=== PATIENT | female | born 1935 | race Caucasian/White ===

== ENCOUNTER 2016-11-06 11:01 | Inpatient (IN) | payer MEDICARE ==
[2016-11-06] VITALS (9 sets, daily range): BP systolic 106–140; BP diastolic 53–68; PULSE 89–129; RESP 16–20; TEMP 97.8–98.3; O2SAT 94–96
[~2016-11-06] VITALS: Ht 170.2 cm; Wt 51.6 kg
[~2016-11-06 11:01] MED LIST: ALEN70 PO; ASPI81 PO; CALC625 PO; CARB300C2 PO; FOLI800T12 PO; PRIL20TA2 PO; PRIN20TA2 PO; SALM50I; SULF500 PO; VENTAER INH; ZITH250T PO
[2016-11-06] MEDS ORDERED: SODIUM CHLORIDE 0.9% FLUSH 5 ML FLUSH IVF PRN (11:15)
[2016-11-06] MEDS ORDERED: cefTRIAXone INJ 2,000 MG in SODIUM CHLORIDE 0.9% INJ 100 ML IV ONE (11:15)
[2016-11-06] MEDS ORDERED: AZITHROMYCIN INJ 500 MG in SODIUM CHLOR 0.9% 250 ML INJ 250 ML IV ONE (11:15)
--- NOTE | 2016-11-06 11:24 | PD ---
HPI . Shortness of breath Chief Complaint: Respiratory Symptoms Time Seen by Provider: 11:07 Travel History International Travel<30 days: No Contact w/Intl Traveler<30days: No Traveled to known affect area: No History of Present Illness HPI Patient presents with a 3 day history of worsening shortness of breath, weakness , poor appetite. It is associated with yellow sputum production. No fever. She states that she has been using her usual medications but has not taken anything extra such as Robitussin. PFSH Past Medical History Narrative Medical Patient reports that she is on oxygen at night. She is usually on 2 L. Autoimmune Disease: No Cancer: Yes (COLON) Cardiac Catheterization: Yes Cardiovascular Problems: Yes (STENT X 1) COPD: Yes Coronary Artery Disease: Yes Diabetes: No Diminished Hearing: No Endocrine: No Gastrointestinal Disorders: Yes Glaucoma: No Genitourinary: No Hepatitis: No Hiatal Hernia: Yes Hypertension: Yes Immune Disorder: No Musculoskeletal: Yes Neurologic: No (HAS EPILEPSEY, BUT NO SEIZURES) Psychiatric: No Reproductive: No Respiratory: Yes (COPD) Thyroid Disease: No Menopausal: Yes Tubal Ligation: Yes Past Surgical History Abdominal Surgery: Yes (HERNIA REPAIR, COLON CA REMOVED.) Appendectomy: Yes Body Medical Devices: STENT,PIN IN LEFT HIP Coronary Stent: Yes Eye Surgery: Yes (CATARACT SX BOTH EYES) Gynecologic Surgery: Yes (hysterectomy,tubal) Hysterectomy: Yes Pacemaker: No Social History Alcohol Use: Yes (2-3 DRINKS TWICE A WEEK) Tobacco Use: No Substance Use: No Allergies-Medications (Allergen,Severity, Reaction): Coded Allergies: Iodine (Verified Allergy, Severe, 11/06/16) Penicillin (Verified Allergy, Severe, shortness of breath, lip swelling, vomiting, 08/12/12) Shellfish (Unverified Allergy, Severe, with alcohol anaphylactic, 12/10) Morphine (Unverified Allergy, Intermediate, N/V, 08/12/12) Reported Meds & Prescriptions Reported Meds & Active Scripts Active Reported Senokot (Sennosides) 8.6 Mg Tab 17.2-25.8 Mg PO BID PRN Vitamin D3 (Cholecalciferol) 2,000 Unit Tab 2,000 Units PO BID Omeprazole 20 Mg Tab 20 Mg PO DAILY Aspirin Adult Low Strength (Aspirin) 81 Mg Tabdr 81 Mg PO DAILY [Nebulizer] DIRECTED Reclast Inj (Zoledronic Acid) 5 Mg/100 Ml Inj 5 Mg IV YEARLY Ventolin Hfa 18 GM Inh (Albuterol Sulfate) 90 Mcg/Act Aer 2 Puff INH Q4H PRN Serevent Diskus Inh (Salmeterol Xinafoate) 50 Mcg/Act Aero 1 Puff INH BID Sulfasalazine 500 Mg Tab 2,000 Mg PO DAILY Carbamazepine 200 Mg Tab 300 Mg PO BID Lisinopril 20 Mg Tab 20 Mg PO BID Review of Systems Except as stated in HPI: all other systems reviewed are Neg General / Constitutional: No: Fever, Chills Respiratory: Positive: Cough, Shortness of Breath, Wheezing, Other (yellow sputum) Gastrointestinal: Positive: Constipation (no bowel movement for 4 days), Loss of Appetite Musculoskeletal: Positive: Weakness Physical Exam Narrative GENERAL: This is an elderly woman who is awake and alert and able to give her own history. She does have audible wheezing and a wet sounding cough. SKIN: Warm and dry. HEAD: Atraumatic. Normocephalic. EYES: Pupils equal and round. ENT: No nasal bleeding or discharge. Mucous membranes pink and moist. NECK: Trachea midline. Supple. CARDIOVASCULAR: Regular rate and rhythm. Heart sounds are normal. RESPIRATORY: No accessory muscle use. She has good air movement throughout. She does have audible rhonchi. GASTROINTESTINAL: Abdomen soft, non-tender, nondistended. MUSCULOSKELETAL: No obvious deformities. No edema. NEUROLOGICAL: Awake and alert. No obvious cranial nerve deficits. Motor grossly within normal limits. Normal speech. PSYCHIATRIC: Appropriate mood and affect; insight and judgment normal. Data Data Last Documented VS Vital Signs Date Time Temp Pulse Resp B/P Pulse Ox O2 Delivery O2 Flow Rate FiO2 11/06/16 11:05 128 18 95 Nasal Cannula 4 11/06/16 11:05 98.1 131/55 Orders Electrocardiogram (11/06/16 ) Basic Metabolic Panel (Bmp) (11/06/16 11:15) Complete Blood Count With Diff (11/06/16 11:15) Lactic Acid Sepsis Protocol (11/06/16 11:15) Urinalysis - C+S If Indicated (11/06/16 11:15) Blood Culture (11/06/16 11:15) Sputum Culture And Gram Stain (11/06/16 11:15) Chest, Single Ap (11/06/16 11:15) Ecg Monitoring (11/06/16 11:15) Iv Access Insert/Monitor (11/06/16 11:15) Oximetry (11/06/16 11:15) Oxygen Administration (11/06/16 11:15) Sodium Chloride 0.9% Flush (Ns Flush) (11/06/16 11:15) Ceftriaxone Inj (Rocephin Inj) (11/06/16 11:15) Azithromycin Inj (Zithromax Inj) (11/06/16 11:15) B-Type Natriuretic Peptide (11/06/16 11:15) Furosemide Inj (Lasix Inj) (11/06/16 12:30) Admit To Inpatient (11/06/16 ) Code Status (11/06/16 12:35) Vital Signs (Adult) Q4H (11/06/16 12:35) Activity Oob With Assistance (11/06/16 12:35) Diet Heart Healthy (11/06/16 Lunch) Sodium Chloride 0.9% Flush (Ns Flush) (11/06/16 12:45) Sodium Chloride 0.9% Flush (Ns Flush) (11/06/16 21:00) Acetaminophen (Tylenol) (11/06/16 12:45) Ondansetron Inj (Zofran Inj) (11/06/16 12:45) Magnesium Hydroxide Liq (Milk Of Magnesi (11/06/16 12:45) Chest, Pa & Lat (11/07/16 08:00) Pt Request For Service (11/06/16 12:35) Scd Bilateral/Knee High SAE.BID (11/06/16 12:35) Naloxone Inj (Narcan Inj) (11/06/16 12:45) Inpatient Certification (11/06/16 ) 1/2 Ns + Kcl 20 Meq Inj (1/2 Ns + Kcl 20 (11/06/16 12:45) Complete Blood Count With Diff (11/07/16 06:00) Basic Metabolic Panel (Bmp) (11/07/16 06:00) Magnesium (Mg) (11/07/16 06:00) Albuterol-Ipratropium Neb (Duoneb Neb) (11/06/16 14:00) Albuterol-Ipratropium Neb (Duoneb Neb) (11/06/16 12:45) Sputum Culture And Gram Stain (11/06/16 12:37) Legionella Urinary Antigen (11/06/16 12:37) Pneumococcal Urinary Antigen (11/06/16 12:37) Azithromycin (Zithromax) (11/07/16 09:00) Enalaprilat Inj (Vasotec Inj) (11/06/16 12:45) Clonidine (Catapres) (11/06/16 12:45) Aspirin Ec (Ecotrin Ec) (11/07/16 09:00) Carbamazepine (Tegretol) (11/06/16 12:45) Lisinopril (Prinivil) (11/06/16 21:00) Pantoprazole (Protonix) (11/07/16 09:00) Salmeterol Diskus Inh (Serevent Diskus I (11/06/16 21:00) Sennosides (Senokot) (11/06/16 12:45) Ceftriaxone Inj (Rocephin Inj) (11/07/16 12:00) Labs Laboratory Tests Test 11/06/16 11/06/16 11:25 11:35 White Blood Count 18.0 TH/MM3 Red Blood Count 3.52 MIL/MM3 Hemoglobin 11.5 GM/DL Hematocrit 34.6 % Mean Corpuscular Volume 98.3 FL Mean Corpuscular Hemoglobin 32.6 PG Mean Corpuscular Hemoglobin 33.2 % Concent Red Cell Distribution Width 13.4 % Platelet Count 172 TH/MM3 Mean Platelet Volume 8.2 FL Neutrophils (%) (Auto) 84.9 % Lymphocytes (%) (Auto) 8.1 % Monocytes (%) (Auto) 6.5 % Eosinophils (%) (Auto) 0.2 % Basophils (%) (Auto) 0.3 % Neutrophils # (Auto) 15.3 TH/MM3 Lymphocytes # (Auto) 1.5 TH/MM3 Monocytes # (Auto) 1.2 TH/MM3 Eosinophils # (Auto) 0.0 TH/MM3 Basophils # (Auto) 0.1 TH/MM3 CBC Comment DIFF FINAL Differential Comment Sodium Level 138 MEQ/L Potassium Level 3.8 MEQ/L Chloride Level 100 MEQ/L Carbon Dioxide Level 27.6 MEQ/L Anion Gap 10 MEQ/L Blood Urea Nitrogen 15 MG/DL Creatinine 0.59 MG/DL Estimat Glomerular Filtration 97 ML/MIN Rate Random Glucose 58 MG/DL Calcium Level 9.0 MG/DL Lactic Acid Level 2.2 mmol/L MDM Medical Decision Making Medical Screen Exam Complete: Yes Emergency Medical Condition: Yes Medical Record Reviewed: Yes Interpretation(s) EKG shows some right ventricular hypertrophy which is unchanged from previous. In a sinus rhythm. There is no ST segment elevation or depression. Differential Diagnosis Differential diagnosis includes but is not limited to viral respiratory illness , bronchitis, pneumonia, allergies, CHF, asthma/COPD. Narrative Course Patient presents with a three-day history of cough and shortness of breath. She has a history of COPD. She has had some sputum production but no fever. EMS reports initial sats of 92% on 4 L of oxygen. Her respiratory status improved in route with nebulizer treatments. They had given her 3 nebs and Solu -Medrol. CXR--> "1. Cardiomegaly with mild interstitial edema. 2. Elevation of right hemidiaphragm with consolidative changes right base. " I will order antibiotics for community acquired pneumonia as well as Lasix. CBC has a white blood count of 18.0. Dr. Holder called me to say that he had already put in admission orders for this patient. Sepsis Criteria SIRS Criteria (2 or more): Heart rate over 90, WBC > 41014, < 4000 or > 10% bands Sepsis Criteria (SIRS+source): Infect source susp/known Criteria Outcome: Meets SIRS criteria Diagnosis Primary Impression: Pneumonia Qualified Code: J18.1 - Pneumonia of right lower lobe due to infectious organism Additional Impression: CHF (congestive heart failure) Qualified Code: I50.9 - Acute congestive heart failure, unspecified congestive heart failure type Admitting Information Admitting Physician Requests: Admit Condition: Stable Mely Leblanc MD Nov 06, 2016 11:24
[2016-11-06] MEDS ORDERED: ASPI1TAB91 PO (11:40)
[2016-11-06] MEDS ORDERED: VENTAER INH (11:40)
[2016-11-06] MEDS ORDERED: VITA200012 PO (11:40)
[2016-11-06] MEDS ORDERED: SULF500T3 PO (11:40)
[2016-11-06] MEDS ORDERED: ZOLE5P IV (11:40)
[2016-11-06] MEDS ORDERED: NEBUMIS6 (11:40)
[2016-11-06] MEDS ORDERED: OMEP20TA PO (11:40)
[2016-11-06] MEDS ORDERED: SENO8.6T5 PO (11:40)
[2016-11-06] MEDS ORDERED: SALM50I INH (11:40)
[2016-11-06] MEDS ORDERED: LISI-515 PO (11:40)
[2016-11-06] MEDS ORDERED: CARB200T PO (11:40)
[2016-11-06 11:56] LABS: AUTOMATED NEUTROPHIL # 15.3 TH/MM3 (1.8-7.7); BASOPHIL # 0.1 TH/MM3 (0-0.2); BASOPHIL % 0.3 % (0.0-2.0); EOSINOPHIL % 0.2 % (0.0-4.0); HEMATOCRIT 34.6 % (35.0-46.0); HEMO FLAGS DIFF FINAL; LYMPH % 8.1 % (9.0-44.0); LYMPHOCYTE # 1.5 TH/MM3 (1.0-4.8); MEAN CELL VOLUME 98.3 FL (80.0-100.0); MEAN CORPUSCULAR HEMOGLOBIN 32.6 PG (27.0-34.0); MEAN CORPUSCULAR HGB CONC 33.2 % (32.0-36.0); MONO % 6.5 % (0.0-8.0); NEUT % 84.9 % (16.0-70.0); PLATELET COUNT 172 TH/MM3 (150-450); RED BLOOD COUNT 3.52 MIL/MM3 (4.00-5.30); RED CELL DISTRIBUTION WIDTH 13.4 % (11.6-17.2)
--- NOTE | 2016-11-06 12:10 | RADRPT ---
EXAM DATE/TIME: 11/06/2016 11:34 [facility] COMPARISON: CHEST PA & LAT, August 12, 2012, 15:12. INDICATIONS : Cough, Short of Breath. MEDICAL HISTORY : Chronic obstructive pulmonary disease. SURGICAL HISTORY : None. ENCOUNTER: Initial ACUITY: 1 day PAIN SCORE: 0/10 LOCATION: Bilateral chest FINDINGS: The heart is enlarged. Mild interstitial edema is present. There is elevation of the right hemidiap hragm with minimal consolidative changes present in the right base. These have progressed in the int erval. Old rib fractures are seen on the left. CONCLUSION: 1. Cardiomegaly with mild interstitial edema. 2. Elevation of right hemidiaphragm with consolidative changes right base. Zacarias Orozco MD FACR on November 06, 2016 at 11:55 Board Certified Radiologist. This report was verified electronically.
[2016-11-06 12:24] LABS: BICARBONATE 27.6 MEQ/L (21.0-32.0); POTASSIUM 3.8 MEQ/L (3.5-5.1)
[2016-11-06] MEDS ORDERED: FUROSEMIDE 40 MG/4 ML VIAL IV PUSH ONE (12:30)
[2016-11-06] MEDS ORDERED: SENNOSIDES 8.6 MG TAB PO PRN (12:45)
[2016-11-06] MEDS ORDERED: ACETAMINOPHEN 325 MG TAB PO PRN (12:45)
[2016-11-06] MEDS ORDERED: ONDANSETRON HCL 4 MG/2 ML VIAL IVP PRN (12:45)
[2016-11-06] MEDS ORDERED: ENALAPRILAT 1.25 MG/ML VIAL IV PUSH PRN (12:45)
[2016-11-06] MEDS ORDERED: NALOXONE HCL 0.4 MG/ML AMP IV PRN (12:45)
[2016-11-06] MEDS ORDERED: SODIUM CHLORIDE 0.9% FLUSH 5 ML FLUSH FLUSH PRN (12:45)
[2016-11-06] MEDS: 1/2 NS + KCL 20 MEQ INJ 1,000 ML IV SCH (13:26)
[2016-11-06] MEDS ORDERED: PILL SPLITTER OTHER PRN (13:30)
[2016-11-06] MEDS: RESP: ALBUTEROL 2.5 MG/IPRATROPIUM 0.5 MG NEB (SCH) NEB ×2 (13:35→20:16)
[2016-11-06 13:48] LABS: LACTIC ACID GHOST NOT REPORTABLE
[2016-11-06] MEDS: carBAMazepine 200 MG TAB PO SCH ×2 (13:59→20:37)
[2016-11-06 15:30] LABS: BLOOD, URINE NEG (NEG); GLUCOSE,URINE NEG (NEG); HYALINE CAST, URINE 1 /lpf (RARE); KETONE, URINE 40 mg/dL (NEG); MUCUS URINE FEW /lpf (OCC); NITRITE,URINE NEG (NEG); PH, URINE 5.5 (5.0-8.5); URINE COLOR DARK-YELLOW (YELLW/STRAW)
[2016-11-06 15:31] LABS: COMMENT (UR) CULT NOT INDICATED; CULTURE IF INDICATED CULT NOT INDICATED
--- NOTE | 2016-11-06 17:39 | EKG ---
Date Performed: 11/06/2016 Time Performed: 11:14:09 PTAGE: 81 years EKG: SINUS TACHYCARDIA RIGHT AXIS DEVIATION ST/T-WAVE ABNORMALITY, CONSIDER LATERAL ISCHEMIA ABN ORMAL ECG PREVIOUS TRACING : 10/30/2010 06.18 Compared to previous tracing, axis has shifted rightward, l ateral ST/T changes are now present. DOCTOR: Guilherme Rodríguez Interpretating Date/Time 11/06/2016 17:38:03
--- NOTE | 2016-11-06 18:04 | HHI.HP ---
HPI Service [facility] Hospitalists Primary Care Physician Felix Medel MD Admission Diagnosis PNEUMONIA Chief Complaint: cough SOB Travel History International Travel<30 Days: No Contact w/Intl Traveler <30 Da: No Traveled to Known Affected Are: No History of Present Illness Patient is a pleasant 81-year-old female presented to the [facility] ER today with complaint of worsening cough and shortness of breath. Cough was productive of yellow sputum. Patient denies fever or chills. Patient denies recent travel. Patient complains of generalized weakness and poor appetite. Pt is chronically SOB d/t COPD, but she feels that her SOB has worsened from baseline in the last 1-2 weeks. Pt relates that she was around her great-granddaughter on [place] who had URI symptoms. Review of Systems Constitutional: DENIES: Diaphoretic episodes, Fatigue, Fever, Weight gain, Weight loss, Chills, Dizziness, Change in appetite, Night Sweats Endocrine: DENIES: Heat/cold intolerance, Polydipsia, Polyuria, Polyphagia Eyes: DENIES: Blurred vision, Diplopia, Eye inflammation, Eye pain, Vision loss , Photosensitivity, Double Vision Ears, nose, mouth, throat: DENIES: Tinnitus, Hearing loss, Vertigo, Nasal discharge, Oral lesions, Throat pain, Hoarseness, Ear Pain, Running Nose, Epistaxis, Sinus Pain, Toothache, Odynophagia Respiratory: COMPLAINS OF: Cough, Sputum production, Shortness of breath, DENIES: Apneas, Snoring, Wheezing, Hemoptysis Cardiovascular: DENIES: Chest pain, Palpitations, Syncope, Dyspnea on Exertion , PND, Lower Extremity Edema, Orthopnea, Claudication Gastrointestinal: DENIES: Abdominal pain, Black stools, Bloody stools, BRB per rectum, Constipation, Diarrhea, GERD, Nausea, Reflux, Vomiting, Difficulty Swallowing, Anorexia Genitourinary: DENIES: Urinary frequency, Urinary incontinence, Urgency, Hematuria, Dysuria, Nocturia Musculoskeletal: DENIES: Joint pain, Muscle aches, Stiffness, Joint Swelling, Back pain, Neck pain Integumentary: DENIES: Abnormal pigmentation, Pruritus, Rash, Nail changes, Breast masses, Breast skin changes, Nipple discharge Hematologic/lymphatic: DENIES: Bruising, Lymphadenopathy Immunologic/allergic: DENIES: Eczema, Urticaria Neurologic: DENIES: Abnormal gait, Headache, Localized weakness, Paresthesias, Seizures, Speech Problems, Tremor, Poor Balance Psychiatric: DENIES: Anxiety, Confusion, Mood changes, Depression, Hallucinations, Agitation, Suicidal Ideation, Homicidal Ideation, Delusions, History of Bipolar, History of Schizophrenia Past Family Social History Past Medical History 1) COPD 2) peripheral artery disease 3) seizure disorder, chronic 4) hypertension 5) insomnia 6) chronic low back pain 7) peripheral vascular disease 8) coronary artery disease 9) Ulcerative colitis Past Surgical History 1) appendectomy 2) bilateral breast augmentation 3) cataract surgery 4) EGD/colonoscopy 5) excision tumor from back 6) herniorrhaphy 7) hip surgery 8) hysterectomy 9) partial colectomy with colostomy 10) heart catheterization with coronary stent placement 11) tubal ligation 12) varicose vein ligation Reported Medications Reported Meds & Active Scripts Active Reported Senokot (Sennosides) 8.6 Mg Tab 17.2-25.8 Mg PO BID PRN Vitamin D3 (Cholecalciferol) 2,000 Unit Tab 2,000 Units PO BID Omeprazole 20 Mg Tab 20 Mg PO DAILY Aspirin Adult Low Strength (Aspirin) 81 Mg Tabdr 81 Mg PO DAILY [Nebulizer] DIRECTED Reclast Inj (Zoledronic Acid) 5 Mg/100 Ml Inj 5 Mg IV YEARLY Ventolin Hfa 18 GM Inh (Albuterol Sulfate) 90 Mcg/Act Aer 2 Puff INH Q4H PRN Serevent Diskus Inh (Salmeterol Xinafoate) 50 Mcg/Act Aero 1 Puff INH BID Sulfasalazine 500 Mg Tab 2,000 Mg PO DAILY Carbamazepine 200 Mg Tab 300 Mg PO BID Lisinopril 20 Mg Tab 20 Mg PO BID Allergies: Coded Allergies: Iodine (Verified Allergy, Severe, 11/06/16) Penicillin (Verified Allergy, Severe, shortness of breath, lip swelling, vomiting, 08/12/12) Shellfish (Unverified Allergy, Severe, with alcohol anaphylactic, 12/10) Morphine (Unverified Allergy, Intermediate, N/V, 08/12/12) Family History Noncontributory Social History - Former smoker - No alcohol use - No illicit street drugs - Retired - Physical Exam Vital Signs Vital Signs Date Time Temp Pulse Resp B/P Pulse Ox O2 Delivery O2 Flow Rate FiO2 11/06/16 15:59 Nasal Cannula 4.00 11/06/16 15:00 98 16 120/59 94 Nasal Cannula 4 11/06/16 14:50 97.8 102 20 140/63 94 11/06/16 13:36 94 Nasal Cannula 4.00 11/06/16 13:00 105 16 111/53 94 Nasal Cannula 4 11/06/16 11:05 128 18 95 Nasal Cannula 4 11/06/16 11:05 98.1 129 18 131/55 95 Nasal Cannula 4 11/06/16 11:01 98.1 128 18 131/55 96 11/06/16 11:01 95 Nasal Cannula 4 Physical Exam GENERAL: This is a well-nourished, well-developed patient, in no apparent distress. SKIN: No rashes, ecchymoses or lesions. Cool and dry. HEAD: Atraumatic. Normocephalic. No temporal or scalp tenderness. EYES: Pupils equal round and reactive. Extraocular motions intact. No scleral icterus. No injection or drainage. ENT: Nose without bleeding, purulent drainage or septal hematoma. Throat without erythema, tonsillar hypertrophy or exudate. Uvula midline. Airway patent. NECK: Trachea midline. No JVD or lymphadenopathy. Supple, nontender, no meningeal signs. CARDIOVASCULAR: Regular rate and rhythm without murmurs, gallops, or rubs. RESPIRATORY: rhonchi right lung field worse than left . GASTROINTESTINAL: Abdomen soft, non-tender, nondistended. No hepato-splenomegaly , or palpable masses. No guarding. MUSCULOSKELETAL: Extremities without clubbing, cyanosis, or edema. No joint tenderness, effusion, or edema noted. No calf tenderness. Negative Homans sign bilaterally. NEUROLOGICAL: Awake and alert. Cranial nerves II through XII intact. Motor and sensory grossly within normal limits. Five out of 5 muscle strength in all muscle groups. Normal speech. Laboratory Laboratory Tests Test 11/06/16 11/06/16 11/06/16 11/06/16 11:25 11:35 12:05 15:00 White Blood Count 18.0 Red Blood Count 3.52 Hemoglobin 11.5 Hematocrit 34.6 Mean Corpuscular Volume 98.3 Mean Corpuscular Hemoglobin 32.6 Mean Corpuscular Hemoglobin 33.2 Concent Red Cell Distribution Width 13.4 Platelet Count 172 Mean Platelet Volume 8.2 Neutrophils (%) (Auto) 84.9 Lymphocytes (%) (Auto) 8.1 Monocytes (%) (Auto) 6.5 Eosinophils (%) (Auto) 0.2 Basophils (%) (Auto) 0.3 Neutrophils # (Auto) 15.3 Lymphocytes # (Auto) 1.5 Monocytes # (Auto) 1.2 Eosinophils # (Auto) 0.0 Basophils # (Auto) 0.1 CBC Comment DIFF FINAL Differential Comment Sodium Level 138 Potassium Level 3.8 Chloride Level 100 Carbon Dioxide Level 27.6 Anion Gap 10 Blood Urea Nitrogen 15 Creatinine 0.59 Estimat Glomerular Filtration 97 Rate Random Glucose 58 Calcium Level 9.0 Lactic Acid Level 2.2 B-Type Natriuretic Peptide 122 Urine Color DARK-YELLOW Urine Turbidity CLEAR Urine pH 5.5 Urine Specific [place] 1.014 Urine Protein TRACE Urine Glucose (UA) NEG Urine Ketones 40 Urine Occult Blood NEG Urine Nitrite NEG Urine Bilirubin NEG Urine Urobilinogen LESS THAN 2.0 Urine Leukocyte Esterase NEG Urine RBC LESS THAN 1 Urine WBC LESS THAN 1 Urine Hyaline Casts 1 Urine Mucus FEW Microscopic Urinalysis Comment CULT NOT INDICATED Date/Time Procedure Status Source Growth 11/06/16 15:00 Legionella Antigen Received Urine Random Urine Pending 11/06/16 15:00 Streptococcus pneumoniae Antigen (M Received Urine Random Urine Pending 11/06/16 11:35 Gram Stain - Final Resulted Sputum Expectorated Sputum 11/06/16 11:35 Sputum Culture Resulted Sputum Expectorated Sputum Pending 11/06/16 11:35 Aerobic Blood Culture Received Blood Peripheral Pending 11/06/16 11:35 Anaerobic Blood Culture Received Blood Peripheral Pending Result Diagram: 11/06/16 1125 11/06/16 1125 Imaging Last Impressions Chest X-Ray 11/06/16 1115 Signed Impressions: Service Date/Time: Sunday, November 06, 2016 11:34 - CONCLUSION: 1. Cardiomegaly with mild interstitial edema. 2. Elevation of right hemidiaphragm with consolidative changes right base. Zacarias Orozco MD FACR Septic Shock Reassessment Heart: Regular rate and rhythm Lungs: Clear Skin: Warm Peripheral Pulses: Bounding Right Radial Bounding Left Radial Bounding Right Popliteal Bounding Left Popliteal Bounding Right Dorsalis Pedis Bounding Left Dorsalis Pedis Bounding Right Posterior Tibial Bounding Left Posterior Tibial Capillary Refill: Brisk Assessment and Plan Problem List: (1) Pneumonia Status: Acute Plan: - Patient has underlying COPD - Obtain sputum studies - Obtain urine antigen for Legionella and pneumococcus - Obtain repeat chest x-ray in a.m. - Intravenous fluids - Supplemental oxygen as necessary - Continue IV Rocephin - Continue azithromycin - IV solumedrol - Duo neb treatments (2) COPD (chronic obstructive pulmonary disease) Status: Acute Plan: - Duo neb treatments- continue - Duo neb treatments - Continue scheduled Serevent (3) Ulcerative colitis Status: Chronic Plan: - Patient follows with [facility] - Continue sulfasalazine (4) HTN (hypertension) Status: Chronic Plan: - Stable - Continue lisinopril (5) CAD (coronary artery disease) Status: Acute Plan: - Patient follows with Dr. Сергей Wang - History of heart catheter and coronary stent - Continue aspirin, lisinopril (6) Seizure disorder Status: Acute Plan: - chronic - Continue carbamazepine Problem Qualifiers (1) Pneumonia: Qualified Code: J18.1 - Pneumonia of right lower lobe due to infectious organism (2) COPD (chronic obstructive pulmonary disease): Qualified Code: J44.9 - Chronic obstructive pulmonary disease, unspecified COPD type (3) Ulcerative colitis: Qualified Code: K51.919 - Ulcerative colitis with complication, unspecified location (4) HTN (hypertension): Qualified Code: I10 - Essential hypertension (5) CAD (coronary artery disease): Qualified Code: I25.10 - Coronary artery disease involving [place] heart without angina pectoris, unspecified vessel or lesion type Jared Holder DO Nov 06, 2016 18:04
[2016-11-06] MEDS ORDERED: BISACODYL 10 MG SUPP PR PRN (18:30)
[2016-11-06] MEDS ORDERED: SOD PHOSPHATE/SOD BIPHOSPHATE (ADULT) ENEMA 133ML PR PRN (18:30)
[2016-11-06] MEDS: SODIUM CHLORIDE 0.9% FLUSH 5 ML FLUSH FLUSH SCH (20:26)
[2016-11-06] MEDS: DOCUSATE SODIUM 100 MG CAP PO SCH (20:37)
[2016-11-06] MEDS: methylPREDNISolone SOD SUCC 40 MG/1 ML VIAL IV PUSH SCH (20:38)
[2016-11-06] MEDS: LISINOPRIL 20 MG TAB PO SCH (20:38)
[2016-11-06] MEDS: SALMETEROL XINAFOATE 50 MCG DISKUS INH SCH (20:38)
[2016-11-06] MEDS: TEMAZEPAM 7.5 MG CAP PO PRN (23:25)
[2016-11-07] VITALS (9 sets, daily range): BP systolic 107–144; BP diastolic 56–96; PULSE 85–96; RESP 16–22; TEMP 97.6–98.7; O2SAT 91–98
[2016-11-07] MEDS: 1/2 NS + KCL 20 MEQ INJ 1,000 ML IV SCH (02:34)
--- NOTE | 2016-11-07 04:49 | RADRPT ---
EXAM DATE/TIME: 11/07/2016 04:37 [facility] COMPARISON: No previous studies available for comparison. INDICATIONS : Trauma; fall. RADIATION DOSE: 38.28 CTDIvol (mGy) MEDICAL HISTORY : Hypertension. Chronic obstructive pulmonary disease. SURGICAL HISTORY : None. ENCOUNTER: Initial ACUITY: 1 day PAIN SCALE: 2/10 LOCATION: cranial TECHNIQUE: Multiple contiguous axial images were obtained of the head. Using automated exposure control and adj ustment of the mA and/or kV according to patient size, radiation dose was kept as low as reasonably a chievable to obtain optimal diagnostic quality images. FINDINGS: CEREBRUM: The ventricles are normal for age. No evidence of midline shift, mass lesion, hemorrhage or acute in farction. No extra-axial fluid collections are seen. POSTERIOR FOSSA: The cerebellum and brainstem are intact. The 4th ventricle is midline. The cerebellopontine angle i s unremarkable. EXTRACRANIAL: The visualized portion of the orbits is intact. SKULL: The calvaria is intact. No evidence of skull fracture. CONCLUSION: No acute intracranial disease. Wilson Rubio MD on November 07, 2016 at 4:48 Board Certified Radiologist. This report was verified electronically.
[2016-11-07 06:05] LABS: AUTOMATED NEUTROPHIL # 13.5 TH/MM3 (1.8-7.7); BASOPHIL % 0.1 % (0.0-2.0); HEMO FLAGS DIFF FINAL; LYMPH % 2.8 % (9.0-44.0); LYMPHOCYTE # 0.4 TH/MM3 (1.0-4.8); MEAN CELL VOLUME 97.7 FL (80.0-100.0); MEAN CORPUSCULAR HEMOGLOBIN 31.6 PG (27.0-34.0); MEAN CORPUSCULAR HGB CONC 32.3 % (32.0-36.0); NEUT % 93.1 % (16.0-70.0); PLATELET COUNT 171 TH/MM3 (150-450); RED BLOOD COUNT 3.28 MIL/MM3 (4.00-5.30); RED CELL DISTRIBUTION WIDTH 13.5 % (11.6-17.2); WHITE BLOOD COUNT 14.5 TH/MM3 (4.0-11.0)
[2016-11-07 06:39] LABS: BICARBONATE 27.4 MEQ/L (21.0-32.0); MAGNESIUM 2.4 MG/DL (1.5-2.5); POTASSIUM 4.2 MEQ/L (3.5-5.1)
[2016-11-07] MEDS: carBAMazepine 200 MG TAB PO SCH ×2 (08:17→22:32)
[2016-11-07] MEDS: methylPREDNISolone SOD SUCC 40 MG/1 ML VIAL IV PUSH SCH ×2 (08:17→22:33)
[2016-11-07] MEDS: PANTOPRAZOLE SOD 20 MG DELAYED RELEASE TAB PO SCH (08:17)
[2016-11-07] MEDS: SODIUM CHLORIDE 0.9% FLUSH 5 ML FLUSH FLUSH SCH ×2 (08:18→22:32)
[2016-11-07] MEDS: AZITHROMYCIN 250 MG TAB PO SCH (08:18)
[2016-11-07] MEDS: DOCUSATE SODIUM 100 MG CAP PO SCH ×2 (08:18→22:32)
[2016-11-07] MEDS: ASPIRIN EC 81 MG TABEC PO SCH (08:18)
[2016-11-07] MEDS: LISINOPRIL 20 MG TAB PO SCH ×2 (08:18→22:32)
[2016-11-07] MEDS: RESP: ALBUTEROL 2.5 MG/IPRATROPIUM 0.5 MG NEB (SCH) NEB ×3 (08:44→20:52)
--- NOTE | 2016-11-07 10:13 | RADRPT ---
EXAM DATE/TIME: 11/07/2016 08:32 [facility] COMPARISON: CHEST PA & LAT, August 12, 2012, 15:12. INDICATIONS: Cough, Short of breath MEDICAL HISTORY: Chronic obstructive pulmonary disease. SURGICAL HISTORY: None. ENCOUNTER: Subsequent ACUITY: 2 days PAIN SCORE: 0/10 LOCATION: Bilateral chest FINDINGS: There is mild elevation of the right hemidiaphragm. Left lung is clear. Heart is enlarged. There i s very mild interstitial edema present. CONCLUSION: Marked elevation of the right hemidiaphragm, minimal parenchymal changes right base. Mild interstitial edema. Zacarias Orozco MD FACR on November 07, 2016 at 9:22 Board Certified Radiologist. This report was verified electronically.
[2016-11-07] MEDS: SALMETEROL XINAFOATE 50 MCG DISKUS INH SCH ×2 (12:58→22:31)
[2016-11-07] MEDS: cefTRIAXone INJ 1,000 MG in SODIUM CHLORIDE 0.9% INJ 100 ML IV SCH (12:58)
--- NOTE | 2016-11-07 21:14 | HHI.PR ---
Subjective Remarks still sob/cough Objective Vitals heent neg heart reg lung rhonci abd s/nt ext no edema Vital Signs Date Time Temp Pulse Resp B/P Pulse Ox O2 Delivery O2 Flow Rate FiO2 11/07/16 20:54 98 Nasal Cannula 4.00 11/07/16 16:00 98.2 85 22 114/56 96 11/07/16 12:00 98.7 89 22 119/58 95 11/07/16 08:23 96 Nasal Cannula 4.00 11/07/16 08:20 Nasal Cannula 4.00 11/07/16 08:00 97.9 87 22 140/96 96 11/07/16 04:00 97.6 85 18 140/63 97 11/07/16 04:00 98.1 88 16 115/61 96 11/07/16 03:30 97.8 89 20 144/66 95 11/07/16 00:15 97.9 87 18 126/69 94 11/06/16 11/06/16 11/07/16 15:00 23:00 07:00 Intake Total 996 ml 120 ml Balance 996 ml 120 ml Intake Oral 240 ml 120 ml IV Total 756 ml # Voids 2 2 Result Diagram: 11/07/16 0535 11/07/16 0535 Imaging Last Impressions Chest X-Ray 11/06/16 1115 Signed Impressions: Service Date/Time: Sunday, November 06, 2016 11:34 - CONCLUSION: 1. Cardiomegaly with mild interstitial edema. 2. Elevation of right hemidiaphragm with consolidative changes right base. Zacarias Orozco MD FACR A/P Problem List: (1) Pneumonia Status: Acute Plan: - presents with copd exacerbation and pna f/u sputum cx cont abx, nebs, solumedrol mucolytics dvt prophylaxis PT oxygen (2) COPD (chronic obstructive pulmonary disease) Status: Acute Plan: see above (3) Ulcerative colitis Status: Chronic Plan: - Patient follows with [facility] - Continue sulfasalazine (4) HTN (hypertension) Status: Chronic Plan: - Stable - Continue lisinopril (5) CAD (coronary artery disease) Status: Chronic Plan: - Patient follows with Dr. Сергей Wang - History of heart catheter and coronary stent - Continue aspirin, lisinopril (6) Seizure disorder Status: Chronic Plan: - chronic - Continue carbamazepine Problem Qualifiers (1) Pneumonia: Qualified Code: J18.1 - Pneumonia of right lower lobe due to infectious organism (2) COPD (chronic obstructive pulmonary disease): Qualified Code: J44.9 - Chronic obstructive pulmonary disease, unspecified COPD type (3) Ulcerative colitis: Qualified Code: K51.919 - Ulcerative colitis with complication, unspecified location (4) HTN (hypertension): Qualified Code: I10 - Essential hypertension (5) CAD (coronary artery disease): Qualified Code: I25.10 - Coronary artery disease involving [place] heart without angina pectoris, unspecified vessel or lesion type Salvador Hokpins MD Nov 07, 2016 21:14
[2016-11-07] MEDS: TEMAZEPAM 7.5 MG CAP PO PRN (22:34)
[2016-11-07] MEDS: guaiFENesin E.R. 600 MG TAB PO SCH (22:36)
[2016-11-08] VITALS (8 sets, daily range): BP systolic 112–157; BP diastolic 56–70; PULSE 85–105; RESP 18–24; TEMP 97.6–98.4; O2SAT 93–98
[2016-11-08] MEDS: methylPREDNISolone SOD SUCC 40 MG/1 ML VIAL IV PUSH SCH ×4 (05:49→22:32)
[2016-11-08] MEDS: RESP: ALBUTEROL 2.5 MG/IPRATROPIUM 0.5 MG NEB (SCH) NEB ×3 (07:58→19:41)
[2016-11-08] MEDS: guaiFENesin E.R. 600 MG TAB PO SCH ×2 (09:19→22:32)
[2016-11-08] MEDS: DOCUSATE SODIUM 100 MG CAP PO SCH ×2 (09:20→21:00)
[2016-11-08] MEDS: ASPIRIN EC 81 MG TABEC PO SCH (09:20)
[2016-11-08] MEDS: AZITHROMYCIN 250 MG TAB PO SCH (09:21)
[2016-11-08] MEDS: PANTOPRAZOLE SOD 20 MG DELAYED RELEASE TAB PO SCH (09:21)
[2016-11-08] MEDS: carBAMazepine 200 MG TAB PO SCH (09:21)
[2016-11-08] MEDS: LISINOPRIL 20 MG TAB PO SCH ×2 (09:21→22:32)
[2016-11-08] MEDS: SODIUM CHLORIDE 0.9% FLUSH 5 ML FLUSH FLUSH SCH ×2 (09:22→22:32)
[2016-11-08] MEDS: SALMETEROL XINAFOATE 50 MCG DISKUS INH SCH ×2 (09:22→22:32)
--- NOTE | 2016-11-08 10:30 | HHI.PR ---
Subjective Remarks a little better. in chair Objective Vitals heart reg lung rhonci abd s/nt ext no edema Vital Signs Date Time Temp Pulse Resp B/P Pulse Ox O2 Delivery O2 Flow Rate FiO2 11/08/16 08:01 93 Nasal Cannula 3.00 11/08/16 08:00 98.0 105 24 112/56 93 11/08/16 04:00 98.2 94 18 157/70 97 11/08/16 04:00 97 Nasal Cannula 4.00 11/08/16 00:00 95 Nasal Cannula 4.00 11/08/16 00:00 98.4 86 18 127/66 95 11/07/16 20:54 98 Nasal Cannula 4.00 11/07/16 20:00 98.3 96 20 107/59 93 11/07/16 19:15 98 Nasal Cannula 3.00 11/07/16 16:00 98.2 85 22 114/56 96 11/07/16 12:00 98.7 89 22 119/58 95 11/07/16 11/07/16 11/08/16 15:00 23:00 07:00 Intake Total 120 ml Balance 120 ml Intake Oral 120 ml # Voids 3 # Bowel Movements 0 Result Diagram: 11/07/16 0535 11/07/16 0535 Imaging Last Impressions Chest X-Ray 11/06/16 1115 Signed Impressions: Service Date/Time: Sunday, November 06, 2016 11:34 - CONCLUSION: 1. Cardiomegaly with mild interstitial edema. 2. Elevation of right hemidiaphragm with consolidative changes right base. Zacarias Orozco MD FACR A/P Problem List: (1) Pneumonia Status: Acute Plan: - presents with copd exacerbation and pna f/u sputum cx cont abx, nebs, solumedrol mucolytics dvt prophylaxis PT oxygen will plan for home with [facility] (2) COPD (chronic obstructive pulmonary disease) Status: Acute Plan: see above (3) Ulcerative colitis Status: Chronic Plan: - Patient follows with [facility] - Continue sulfasalazine (4) HTN (hypertension) Status: Chronic Plan: - Stable - Continue lisinopril (5) CAD (coronary artery disease) Status: Chronic Plan: - Patient follows with Dr. Сергей Wang - History of heart catheter and coronary stent - Continue aspirin, lisinopril (6) Seizure disorder Status: Chronic Plan: - hold tegretol...level high...recheck. Problem Qualifiers (1) Pneumonia: Qualified Code: J18.1 - Pneumonia of right lower lobe due to infectious organism (2) COPD (chronic obstructive pulmonary disease): Qualified Code: J44.9 - Chronic obstructive pulmonary disease, unspecified COPD type (3) Ulcerative colitis: Qualified Code: K51.919 - Ulcerative colitis with complication, unspecified location (4) HTN (hypertension): Qualified Code: I10 - Essential hypertension (5) CAD (coronary artery disease): Qualified Code: I25.10 - Coronary artery disease involving [place] heart without angina pectoris, unspecified vessel or lesion type Salvador Hopkins MD Nov 08, 2016 10:30
[2016-11-08] MEDS: cefTRIAXone INJ 1,000 MG in SODIUM CHLORIDE 0.9% INJ 100 ML IV SCH (13:15)
[2016-11-08] MEDS: MAGNESIUM HYDROXIDE SUSP 30 ML CUP PO PRN (15:39)
[2016-11-08] MEDS ORDERED: LACTULOSE SYRUP 20 GM/30 ML CUP PO ONE (18:00)
[2016-11-08] MEDS: TEMAZEPAM 7.5 MG CAP PO PRN (22:32)
[2016-11-09] VITALS (9 sets, daily range): BP systolic 152–191; BP diastolic 68–83; PULSE 85–104; RESP 18–24; TEMP 97.3–98.7; O2SAT 92–98
[2016-11-09] MEDS: methylPREDNISolone SOD SUCC 40 MG/1 ML VIAL IV PUSH SCH ×4 (05:32→23:46)
[2016-11-09] MEDS: DOCUSATE SODIUM 100 MG CAP PO SCH ×2 (09:00→21:49)
[2016-11-09] MEDS: SODIUM CHLORIDE 0.9% FLUSH 5 ML FLUSH FLUSH SCH ×2 (09:00→21:00)
[2016-11-09] MEDS: RESP: ALBUTEROL 2.5 MG/IPRATROPIUM 0.5 MG NEB (SCH) NEB ×3 (09:14→21:02)
[2016-11-09] MEDS: AZITHROMYCIN 250 MG TAB PO SCH (09:26)
[2016-11-09] MEDS: PANTOPRAZOLE SOD 20 MG DELAYED RELEASE TAB PO SCH (09:26)
[2016-11-09] MEDS: ASPIRIN EC 81 MG TABEC PO SCH (09:26)
[2016-11-09] MEDS: guaiFENesin E.R. 600 MG TAB PO SCH ×2 (09:26→21:49)
[2016-11-09] MEDS: LISINOPRIL 20 MG TAB PO SCH ×2 (09:26→21:49)
[2016-11-09] MEDS: SALMETEROL XINAFOATE 50 MCG DISKUS INH SCH ×2 (09:27→21:50)
--- NOTE | 2016-11-09 11:06 | HHI.PR ---
Subjective Remarks still with congestion feels weak. considering snf. Objective Vitals in chair heart reg lung rhonci. congested abd s/nt ext no edema Vital Signs Date Time Temp Pulse Resp B/P Pulse Ox O2 Delivery O2 Flow Rate FiO2 11/09/16 08:00 98.0 85 24 182/79 95 11/09/16 04:00 Nasal Cannula 3.00 11/09/16 04:00 97.9 94 18 159/70 93 11/09/16 00:00 97.9 85 18 161/70 98 11/09/16 00:00 Nasal Cannula 3.00 11/08/16 20:00 Nasal Cannula 3.00 11/08/16 20:00 97.6 98 18 157/67 94 11/08/16 19:41 97 Nasal Cannula 3.00 11/08/16 16:00 98.4 85 20 152/66 97 11/08/16 12:00 98.4 89 20 146/66 98 11/08/16 11/08/16 11/09/16 15:00 23:00 07:00 Intake Total 662 ml 360 ml 120 ml Balance 662 ml 360 ml 120 ml Intake Oral 560 ml 360 ml 120 ml IV Total 102 ml # Voids 2 3 1 # Bowel Movements 0 4 1 Result Diagram: 11/07/16 0535 11/07/16 0535 Imaging Last Impressions Chest X-Ray 11/06/16 1115 Signed Impressions: Service Date/Time: Sunday, November 06, 2016 11:34 - CONCLUSION: 1. Cardiomegaly with mild interstitial edema. 2. Elevation of right hemidiaphragm with consolidative changes right base. Zacarias Orozco MD FACR A/P Problem List: (1) Pneumonia Status: Acute Plan: - presents with copd exacerbation and pna f/u sputum cx cont abx, nebs, solumedrol add mucomyst incentive spirometer. dvt prophylaxis PT oxygen pt willing to consider snf..she is weak. (2) COPD (chronic obstructive pulmonary disease) Status: Acute Plan: see above (3) Ulcerative colitis Status: Chronic Plan: - Patient follows with [facility] - Continue sulfasalazine (4) HTN (hypertension) Status: Chronic Plan: - Stable - Continue lisinopril (5) CAD (coronary artery disease) Status: Chronic Plan: - Patient follows with Dr. Сергей Wang - History of heart catheter and coronary stent - Continue aspirin, lisinopril (6) Seizure disorder Status: Chronic Plan: -resume tegretol today. level dropped. Problem Qualifiers (1) Pneumonia: Qualified Code: J18.1 - Pneumonia of right lower lobe due to infectious organism (2) COPD (chronic obstructive pulmonary disease): Qualified Code: J44.9 - Chronic obstructive pulmonary disease, unspecified COPD type (3) Ulcerative colitis: Qualified Code: K51.919 - Ulcerative colitis with complication, unspecified location (4) HTN (hypertension): Qualified Code: I10 - Essential hypertension (5) CAD (coronary artery disease): Qualified Code: I25.10 - Coronary artery disease involving [place] heart without angina pectoris, unspecified vessel or lesion type Salvador Hopikns MD Nov 09, 2016 11:05
[2016-11-09] MEDS: cefTRIAXone INJ 1,000 MG in SODIUM CHLORIDE 0.9% INJ 100 ML IV SCH (13:25)
[2016-11-09] MEDS: cloNIDine HCL 0.2 MG TAB PO PRN (18:58)
[2016-11-09] MEDS: RESP: ACETYLCYSTEINE 20% 30 ML NEB NEB SCH (21:02)
[2016-11-09] MEDS: carBAMazepine 200 MG TAB PO SCH (21:49)
[2016-11-09] MEDS: TEMAZEPAM 7.5 MG CAP PO PRN (22:46)
[2016-11-10] VITALS (10 sets, daily range): BP systolic 130–174; BP diastolic 58–85; PULSE 76–91; RESP 18; TEMP 97.7–98.3; O2SAT 93–98
[2016-11-10] MEDS: RESP: ACETYLCYSTEINE 20% 30 ML NEB NEB SCH ×3 (04:26→20:01)
[2016-11-10] MEDS: RESP: ALBUTEROL 2.5 MG/IPRATROPIUM 0.5 MG NEB (PRN) NEB (04:26)
[2016-11-10] MEDS: cloNIDine HCL 0.2 MG TAB PO PRN ×2 (05:20→17:25)
[2016-11-10] MEDS: methylPREDNISolone SOD SUCC 40 MG/1 ML VIAL IV PUSH SCH ×4 (05:20→23:05)
[2016-11-10] MEDS: RESP: ALBUTEROL 2.5 MG/IPRATROPIUM 0.5 MG NEB (SCH) NEB ×3 (08:49→20:00)
[2016-11-10] MEDS: SODIUM CHLORIDE 0.9% FLUSH 5 ML FLUSH FLUSH SCH ×2 (09:33→20:50)
[2016-11-10] MEDS: SALMETEROL XINAFOATE 50 MCG DISKUS INH SCH ×2 (09:33→20:50)
[2016-11-10] MEDS: DOCUSATE SODIUM 100 MG CAP PO SCH ×2 (09:33→20:50)
[2016-11-10] MEDS: LISINOPRIL 20 MG TAB PO SCH ×2 (09:34→20:51)
[2016-11-10] MEDS: PANTOPRAZOLE SOD 20 MG DELAYED RELEASE TAB PO SCH (09:34)
[2016-11-10] MEDS: guaiFENesin E.R. 600 MG TAB PO SCH ×2 (09:34→20:51)
[2016-11-10] MEDS: AZITHROMYCIN 250 MG TAB PO SCH (09:34)
[2016-11-10] MEDS: ASPIRIN EC 81 MG TABEC PO SCH (09:34)
[2016-11-10] MEDS: carBAMazepine 200 MG TAB PO SCH ×2 (09:34→20:51)
--- NOTE | 2016-11-10 12:12 | HHI.PR ---
Subjective Remarks Pt reports that overall she feels better today She is coughing less Denies any chest pain or SOB. Objective Vitals Vital Signs Date Time Temp Pulse Resp B/P Pulse Ox O2 Delivery O2 Flow Rate FiO2 11/10/16 11:20 98 Nasal Cannula 3.00 11/10/16 08:51 98 Nasal Cannula 2.00 11/10/16 08:00 97.9 87 18 133/63 94 11/10/16 04:27 97 Nasal Cannula 2.00 11/10/16 04:00 97.7 76 18 170/79 94 11/10/16 00:00 98.2 85 18 144/85 98 11/09/16 21:02 93 Nasal Cannula 2.00 11/09/16 20:30 Nasal Cannula 3.00 11/09/16 20:00 97.3 89 18 173/76 94 11/09/16 20:00 97.3 89 18 173/76 94 11/09/16 18:30 176/74 11/09/16 16:00 98.5 97 22 191/83 92 11/09/16 11/09/16 11/10/16 15:00 23:00 07:00 Intake Total 480 ml 240 ml 240 ml Balance 480 ml 240 ml 240 ml Intake Oral 480 ml 240 ml 240 ml # Voids 4 1 2 # Bowel Movements 2 Result Diagram: 11/07/16 0535 11/07/16 0535 Other Results Laboratory Tests Test 11/09/16 06:40 Carbamazepine (Tegretol) Level 4.2 MCG/ML Imaging Last Impressions Chest X-Ray 11/07/16 0800 Signed Impressions: Service Date/Time: Monday, November 07, 2016 08:32 - CONCLUSION: Marked elevation of the right hemidiaphragm, minimal parenchymal changes right base. Mild interstitial edema. Zacarias Orozco MD FACR Head CT 11/07/16 0000 Signed Impressions: Service Date/Time: Monday, November 07, 2016 04:37 - CONCLUSION: No acute intracranial disease. Wilson Rubio MD Last Impressions Chest X-Ray 11/06/16 1115 Signed Impressions: Service Date/Time: Sunday, November 06, 2016 11:34 - CONCLUSION: 1. Cardiomegaly with mild interstitial edema. 2. Elevation of right hemidiaphragm with consolidative changes right base. Zacarias Orozco MD FACR Objective Remarks General: NAD, AAOx3 Chest: Congestion and rhonchi at the left lower base with cough Cardiac: Regular Abd: +BS, soft ND/NT Ext: No edema A/P Problem List: (1) Pneumonia Status: Acute Plan: - Pt presented with COPD exacerbation and PNA - Sputum culture with heavy growth of normal respiratory rona - Cont Abx, nebs, Solu-Medrol 40mg Q6H - Cont. Mucomyst - Incentive spirometer. - DVT prophylaxis - PT - Oxygen - Pt would benefit from SNF at the end of this hospitalization (2) COPD (chronic obstructive pulmonary disease) Status: Acute Plan: - See above (3) Ulcerative colitis Status: Chronic Plan: - Patient follows with [facility] - Continue sulfasalazine (4) HTN (hypertension) Status: Chronic Plan: - Stable - Continue lisinopril (5) CAD (coronary artery disease) Status: Chronic Plan: - Patient follows with Dr. Сергей Wang - History of heart catheter and coronary stent - Continue aspirin, lisinopril (6) Seizure disorder Status: Chronic Plan: - Cont. Tegretol 300mg BID Assessment and Plan Patient examined. Assessment and plan formulated with Trisha Bone PA-C. I agree with the above. pna/copd. cont rx. will need snf. Problem Qualifiers (1) Pneumonia: Qualified Code: J18.1 - Pneumonia of right lower lobe due to infectious organism (2) COPD (chronic obstructive pulmonary disease): Qualified Code: J44.9 - Chronic obstructive pulmonary disease, unspecified COPD type (3) Ulcerative colitis: Qualified Code: K51.919 - Ulcerative colitis with complication, unspecified location (4) HTN (hypertension): Qualified Code: I10 - Essential hypertension (5) CAD (coronary artery disease): Qualified Code: I25.10 - Coronary artery disease involving [place] heart without angina pectoris, unspecified vessel or lesion type Trisha Bone Nov 10, 2016 12:12 Salvador Hopkins MD Nov 10, 2016 12:31
[2016-11-10] MEDS: cefTRIAXone INJ 1,000 MG in SODIUM CHLORIDE 0.9% INJ 100 ML IV SCH (12:46)
[2016-11-10] MEDS: TEMAZEPAM 7.5 MG CAP PO PRN (22:43)
[2016-11-11] VITALS (7 sets, daily range): BP systolic 121–184; BP diastolic 57–78; PULSE 81–100; RESP 16–20; TEMP 96.9–98.1; O2SAT 91–97
[2016-11-11] MEDS: RESP: ACETYLCYSTEINE 20% 30 ML NEB NEB SCH ×4 (03:58→20:36)
[2016-11-11] MEDS: RESP: ALBUTEROL 2.5 MG/IPRATROPIUM 0.5 MG NEB (PRN) NEB (03:59)
[2016-11-11] MEDS: methylPREDNISolone SOD SUCC 40 MG/1 ML VIAL IV PUSH SCH ×3 (05:36→17:41)
[2016-11-11] MEDS: SODIUM CHLORIDE 0.9% FLUSH 5 ML FLUSH FLUSH SCH ×2 (08:06→22:13)
[2016-11-11] MEDS: SALMETEROL XINAFOATE 50 MCG DISKUS INH SCH ×2 (08:06→22:03)
[2016-11-11] MEDS: ASPIRIN EC 81 MG TABEC PO SCH (08:07)
[2016-11-11] MEDS: DOCUSATE SODIUM 100 MG CAP PO SCH ×2 (08:07→22:08)
[2016-11-11] MEDS: LISINOPRIL 20 MG TAB PO SCH ×2 (08:07→22:09)
[2016-11-11] MEDS: guaiFENesin E.R. 600 MG TAB PO SCH ×2 (08:07→22:08)
[2016-11-11] MEDS: PANTOPRAZOLE SOD 20 MG DELAYED RELEASE TAB PO SCH (08:07)
[2016-11-11] MEDS: carBAMazepine 200 MG TAB PO SCH ×2 (08:08→22:10)
[2016-11-11] MEDS: AZITHROMYCIN 250 MG TAB PO SCH (08:08)
[2016-11-11] MEDS: RESP: ALBUTEROL 2.5 MG/IPRATROPIUM 0.5 MG NEB (SCH) NEB ×3 (08:45→20:36)
--- NOTE | 2016-11-11 09:35 | HHI.PR ---
Subjective Remarks feels better. Objective Vitals heart reg lung improved basilar crackles abd s/nt ext no edema Vital Signs Date Time Temp Pulse Resp B/P Pulse Ox O2 Delivery O2 Flow Rate FiO2 11/11/16 08:50 95 Nasal Cannula 2.00 11/11/16 08:00 98.1 81 18 184/78 97 11/11/16 03:25 97.5 87 16 159/70 91 11/10/16 23:57 98.3 88 18 145/64 95 11/10/16 20:55 Nasal Cannula 2.00 11/10/16 20:03 96 Nasal Cannula 2.00 11/10/16 19:30 98.1 90 18 130/58 95 11/10/16 16:00 98.2 91 18 174/74 93 11/10/16 12:00 98.3 91 18 132/62 95 11/10/16 11:20 98 Nasal Cannula 3.00 11/10/16 11/10/16 11/11/16 15:00 23:00 07:00 Intake Total 700 ml 360 ml 120 ml Balance 700 ml 360 ml 120 ml Intake Oral 600 ml 360 ml 120 ml IV Total 100 ml # Voids 3 3 3 # Bowel Movements 0 0 0 Result Diagram: 11/07/16 0535 11/07/16 0535 Imaging Last Impressions Chest X-Ray 11/07/16 0800 Signed Impressions: Service Date/Time: Monday, November 07, 2016 08:32 - CONCLUSION: Marked elevation of the right hemidiaphragm, minimal parenchymal changes right base. Mild interstitial edema. Zacarias Orozco MD FACR Head CT 11/07/16 0000 Signed Impressions: Service Date/Time: Monday, November 07, 2016 04:37 - CONCLUSION: No acute intracranial disease. Wilson Rubio MD Last Impressions Chest X-Ray 11/06/16 1115 Signed Impressions: Service Date/Time: Sunday, November 06, 2016 11:34 - CONCLUSION: 1. Cardiomegaly with mild interstitial edema. 2. Elevation of right hemidiaphragm with consolidative changes right base. Zacarias Orozco MD FACR A/P Problem List: (1) Pneumonia Status: Acute Plan: - Pt presented with COPD exacerbation and PNA - Sputum culture with heavy growth of normal respiratory rona - Cont Abx, nebs, solumedrol to prednisone tomorrow. - Cont. Mucomyst - Incentive spirometer. - DVT prophylaxis - PT - Oxygen. check walk test today now feels stronger and refusing snf. (2) COPD (chronic obstructive pulmonary disease) Status: Acute Plan: - See above (3) Ulcerative colitis Status: Chronic Plan: - Patient follows with [facility] - Continue sulfasalazine (4) HTN (hypertension) Status: Chronic Plan: - Stable - Continue lisinopril (5) CAD (coronary artery disease) Status: Chronic Plan: - Patient follows with Dr. Сергей Wang - History of heart catheter and coronary stent - Continue aspirin, lisinopril (6) Seizure disorder Status: Chronic Plan: - Cont. Tegretol 300mg BID Problem Qualifiers (1) Pneumonia: Qualified Code: J18.1 - Pneumonia of right lower lobe due to infectious organism (2) COPD (chronic obstructive pulmonary disease): Qualified Code: J44.9 - Chronic obstructive pulmonary disease, unspecified COPD type (3) Ulcerative colitis: Qualified Code: K51.919 - Ulcerative colitis with complication, unspecified location (4) HTN (hypertension): Qualified Code: I10 - Essential hypertension (5) CAD (coronary artery disease): Qualified Code: I25.10 - Coronary artery disease involving [place] heart without angina pectoris, unspecified vessel or lesion type Salvador Hopkins MD Nov 11, 2016 09:35
[2016-11-11] MEDS: cefTRIAXone INJ 1,000 MG in SODIUM CHLORIDE 0.9% INJ 100 ML IV SCH (12:21)
[2016-11-11] MEDS: TEMAZEPAM 7.5 MG CAP PO PRN (22:07)
[2016-11-12] VITALS (7 sets, daily range): BP systolic 121–176; BP diastolic 56–74; PULSE 83–94; RESP 16–20; TEMP 98–98.6; O2SAT 91–98
[2016-11-12] MEDS: methylPREDNISolone SOD SUCC 40 MG/1 ML VIAL IV PUSH SCH ×2 (01:05→05:46)
[2016-11-12] MEDS: RESP: ALBUTEROL 2.5 MG/IPRATROPIUM 0.5 MG NEB (PRN) NEB ×2 (03:33→15:37)
[2016-11-12] MEDS: RESP: ACETYLCYSTEINE 20% 30 ML NEB NEB SCH ×4 (03:33→22:36)
[2016-11-12] MEDS: RESP: ALBUTEROL 2.5 MG/IPRATROPIUM 0.5 MG NEB (SCH) NEB ×3 (07:39→22:36)
[2016-11-12] MEDS: PANTOPRAZOLE SOD 20 MG DELAYED RELEASE TAB PO SCH (09:34)
[2016-11-12] MEDS: DOCUSATE SODIUM 100 MG CAP PO SCH ×2 (09:34→22:02)
[2016-11-12] MEDS: carBAMazepine 200 MG TAB PO SCH ×2 (09:34→22:02)
[2016-11-12] MEDS: guaiFENesin E.R. 600 MG TAB PO SCH ×2 (09:34→22:01)
[2016-11-12] MEDS: ASPIRIN EC 81 MG TABEC PO SCH (09:34)
[2016-11-12] MEDS: LISINOPRIL 20 MG TAB PO SCH ×2 (09:34→22:02)
[2016-11-12] MEDS: AZITHROMYCIN 250 MG TAB PO SCH (09:35)
[2016-11-12] MEDS: SODIUM CHLORIDE 0.9% FLUSH 5 ML FLUSH FLUSH SCH ×2 (09:35→22:03)
[2016-11-12] MEDS: SALMETEROL XINAFOATE 50 MCG DISKUS INH SCH ×2 (09:35→22:03)
[2016-11-12] MEDS: MAGNESIUM HYDROXIDE SUSP 30 ML CUP PO PRN (10:07)
--- NOTE | 2016-11-12 10:33 | HHI.PR ---
Subjective Remarks breathing better than on admission. Objective Vitals heart reg diminished right base crackles left base abd s/nt ext no edema Vital Signs Date Time Temp Pulse Resp B/P Pulse Ox O2 Delivery O2 Flow Rate FiO2 11/12/16 08:08 98.4 86 18 176/74 97 11/12/16 07:39 91 Nasal Cannula 2.00 11/12/16 04:00 98.0 86 16 151/68 96 11/11/16 20:39 96 Nasal Cannula 2.00 11/11/16 20:00 97.5 86 20 155/72 95 11/11/16 20:00 Nasal Cannula 3.00 11/11/16 16:00 96.9 91 18 138/60 96 11/11/16 15:45 2.00 11/11/16 12:00 97.7 100 18 121/57 95 11/11/16 11/11/16 11/12/16 15:00 23:00 07:00 Intake Total 400 ml 380 ml 0 ml Output Total 600 ml Balance -200 ml 380 ml 0 ml Intake Oral 400 ml 280 ml 0 ml IV Total 100 ml Output Urine Total 600 ml # Voids 1 2 # Bowel Movements 0 Imaging Last Impressions Chest X-Ray 11/07/16 0800 Signed Impressions: Service Date/Time: Monday, November 07, 2016 08:32 - CONCLUSION: Marked elevation of the right hemidiaphragm, minimal parenchymal changes right base. Mild interstitial edema. Zacarias Orozco MD FACR Head CT 11/07/16 0000 Signed Impressions: Service Date/Time: Monday, November 07, 2016 04:37 - CONCLUSION: No acute intracranial disease. Wilson Rubio MD Last Impressions Chest X-Ray 11/06/16 1115 Signed Impressions: Service Date/Time: Sunday, November 06, 2016 11:34 - CONCLUSION: 1. Cardiomegaly with mild interstitial edema. 2. Elevation of right hemidiaphragm with consolidative changes right base. Zacarias Orozco MD FACR A/P Problem List: (1) Pneumonia Status: Acute Plan: - Pt presented with COPD exacerbation and PNA - Sputum culture with heavy growth of normal respiratory rona - Cont Abx, nebs, iv to po steroids. mucomyst - re image today - Incentive spirometer. - DVT prophylaxis - PT - hypoxic with ambulation but pt not interested in wearing o2 during day. (2) COPD (chronic obstructive pulmonary disease) Status: Acute Plan: - See above (3) Ulcerative colitis Status: Chronic Plan: - Patient follows with [facility] - Continue sulfasalazine (4) HTN (hypertension) Status: Chronic Plan: - Stable - Continue lisinopril (5) CAD (coronary artery disease) Status: Chronic Plan: - Patient follows with Dr. Сергей Wang - History of heart catheter and coronary stent - Continue aspirin, lisinopril (6) Seizure disorder Status: Chronic Plan: - Cont. Tegretol 300mg BID Problem Qualifiers (1) Pneumonia: Qualified Code: J18.1 - Pneumonia of right lower lobe due to infectious organism (2) COPD (chronic obstructive pulmonary disease): Qualified Code: J44.9 - Chronic obstructive pulmonary disease, unspecified COPD type (3) Ulcerative colitis: Qualified Code: K51.919 - Ulcerative colitis with complication, unspecified location (4) HTN (hypertension): Qualified Code: I10 - Essential hypertension (5) CAD (coronary artery disease): Qualified Code: I25.10 - Coronary artery disease involving [place] heart without angina pectoris, unspecified vessel or lesion type Salvador Hopkins MD Nov 12, 2016 10:33
[2016-11-12] MEDS ORDERED: predniSONE 20 MG TAB PO ONE (10:45)
[2016-11-12] MEDS ORDERED: LEVOFLOXACIN 500 MG TAB PO ONE (10:45)
--- NOTE | 2016-11-12 19:18 | RADRPT ---
EXAM DATE/TIME: 11/12/2016 18:40 [facility] COMPARISON: No previous studies available for comparison. INDICATIONS : Short of breath, colon cancer. RADIATION DOSE: 5.22 CTDIvol (mGy) MEDICAL HISTORY : Cardiovascular disease. Chronic obstructive pulmonary disease. Hypertension. SURGICAL HISTORY : Cardiac stent. ENCOUNTER: Initial ACUITY: 1 day PAIN SCALE: 3/10 LOCATION: Chest TECHNIQUE: Volumetric scanning of the chest was performed. Using automated exposure control and adjustment of the mA and/or kV according to patient size, radiation dose was kept as low as reasonab ly achievable to obtain optimal diagnostic quality images. FINDINGS: Biapical parenchymal changes are noted. There are moderate parenchymal changes in the right base. There is no axillary or mediastinal adenopathy. Extensive coronary and vascular calcifications are noted. Breast implants are evident. Liver is small and shrunken. Apparent cyst is seen in the right kidney. CONCLUSION: 1. Parenchymal changes in the right lower lobe suspicious for an inflammatory process. 2. The L1 vertebral body is abnormal with bony sclerosis and what looks like a fracture involving devi dy and lamina. This is incompletely evaluated on today's examination. Zacarias Orozco MD FACR on November 12, 2016 at 19:08 Board Certified Radiologist. This report was verified electronically.
[2016-11-12] MEDS: TEMAZEPAM 7.5 MG CAP PO PRN (22:01)
[2016-11-12] MEDS: predniSONE 20 MG TAB PO SCH (22:02)
[2016-11-13] VITALS (8 sets, daily range): BP systolic 111–144; BP diastolic 53–65; PULSE 83–94; RESP 18–19; TEMP 97.4–98.9; O2SAT 92–98
[2016-11-13] MEDS: RESP: ACETYLCYSTEINE 20% 30 ML NEB NEB SCH ×3 (04:42→15:51)
[2016-11-13] MEDS: RESP: ALBUTEROL 2.5 MG/IPRATROPIUM 0.5 MG NEB (PRN) NEB ×2 (04:42→15:51)
[2016-11-13] MEDS: RESP: ALBUTEROL 2.5 MG/IPRATROPIUM 0.5 MG NEB (SCH) NEB ×3 (07:43→20:47)
[2016-11-13] MEDS: SODIUM CHLORIDE 0.9% FLUSH 5 ML FLUSH FLUSH SCH ×2 (08:38→21:03)
[2016-11-13] MEDS: guaiFENesin E.R. 600 MG TAB PO SCH ×2 (08:38→21:01)
[2016-11-13] MEDS: DOCUSATE SODIUM 100 MG CAP PO SCH ×2 (08:39→21:02)
[2016-11-13] MEDS: LEVOFLOXACIN 250 MG TAB PO SCH (08:39)
[2016-11-13] MEDS: carBAMazepine 200 MG TAB PO SCH ×2 (08:40→21:02)
[2016-11-13] MEDS: MAGNESIUM HYDROXIDE SUSP 30 ML CUP PO PRN (08:40)
[2016-11-13] MEDS: ASPIRIN EC 81 MG TABEC PO SCH (08:40)
[2016-11-13] MEDS: predniSONE 20 MG TAB PO SCH ×2 (08:41→21:03)
[2016-11-13] MEDS: PANTOPRAZOLE SOD 20 MG DELAYED RELEASE TAB PO SCH (08:41)
[2016-11-13] MEDS: LISINOPRIL 20 MG TAB PO SCH ×2 (08:41→21:01)
[2016-11-13] MEDS: SALMETEROL XINAFOATE 50 MCG DISKUS INH SCH ×2 (08:41→21:05)
--- NOTE | 2016-11-13 10:45 | HHI.PR ---
Subjective Remarks doing well. will leave for home in AM Objective Vitals heent neg heart reg lung improved air entry. rhonci improving abd s/nt ext no edema Vital Signs Date Time Temp Pulse Resp B/P Pulse Ox O2 Delivery O2 Flow Rate FiO2 11/13/16 08:37 Nasal Cannula 3.00 11/13/16 08:03 97.4 94 18 128/61 96 11/13/16 07:44 98 Nasal Cannula 3.00 11/13/16 04:00 98.2 92 18 144/64 96 11/13/16 00:00 98.0 86 18 132/63 97 11/12/16 22:40 98 Nasal Cannula 3.00 11/12/16 20:00 Nasal Cannula 3.00 11/12/16 20:00 98.6 94 18 157/69 98 11/12/16 16:11 98.2 83 18 150/66 97 11/12/16 12:15 98.3 90 20 121/56 96 11/12/16 11/12/16 11/13/16 15:00 23:00 07:00 Intake Total 480 ml 240 ml 120 ml Balance 480 ml 240 ml 120 ml Intake Oral 480 ml 240 ml 120 ml # Voids 3 1 2 # Bowel Movements 0 0 0 Imaging Last Impressions Chest X-Ray 11/07/16 0800 Signed Impressions: Service Date/Time: Monday, November 07, 2016 08:32 - CONCLUSION: Marked elevation of the right hemidiaphragm, minimal parenchymal changes right base. Mild interstitial edema. Zacarias Orozco MD FACR Head CT 11/07/16 0000 Signed Impressions: Service Date/Time: Monday, November 07, 2016 04:37 - CONCLUSION: No acute intracranial disease. Wilson Rubio MD Last Impressions Chest X-Ray 11/06/16 1115 Signed Impressions: Service Date/Time: Sunday, November 06, 2016 11:34 - CONCLUSION: 1. Cardiomegaly with mild interstitial edema. 2. Elevation of right hemidiaphragm with consolidative changes right base. Zacarias Orozco MD FACR A/P Problem List: (1) Pneumonia Status: Acute Plan: - Pt presented with COPD exacerbation and PNA Ct scans reveals inflammatory changes. - Sputum culture with heavy growth of normal respiratory rona - Cont Abx, nebs, iv to po steroids. mucomyst - Incentive spirometer. - DVT prophylaxis - PT - hypoxic with ambulation but pt not interested in wearing o2 during day. d/c orders placed for d/c home with [facility]/pt..for tomorrow AM. f/u pcp. (2) COPD (chronic obstructive pulmonary disease) Status: Acute Plan: - See above (3) Ulcerative colitis Status: Chronic Plan: - Patient follows with [facility] - Continue sulfasalazine (4) HTN (hypertension) Status: Chronic Plan: - Stable - Continue lisinopril (5) CAD (coronary artery disease) Status: Chronic Plan: - Patient follows with Dr. Сергей Wang - History of heart catheter and coronary stent - Continue aspirin, lisinopril (6) Seizure disorder Status: Chronic Plan: - Cont. Tegretol 300mg BID Problem Qualifiers (1) Pneumonia: Qualified Code: J18.1 - Pneumonia of right lower lobe due to infectious organism (2) COPD (chronic obstructive pulmonary disease): Qualified Code: J44.9 - Chronic obstructive pulmonary disease, unspecified COPD type (3) Ulcerative colitis: Qualified Code: K51.919 - Ulcerative colitis with complication, unspecified location (4) HTN (hypertension): Qualified Code: I10 - Essential hypertension (5) CAD (coronary artery disease): Qualified Code: I25.10 - Coronary artery disease involving [place] heart without angina pectoris, unspecified vessel or lesion type Salvador Hopkins MD Nov 13, 2016 10:45
[2016-11-13] MEDS ORDERED: IPRA0.02 NEB (13:38)
[2016-11-13] MEDS ORDERED: ALBU0.08 NEB (13:38)
[2016-11-13] MEDS ORDERED: MUCI600T PO (13:38)
[2016-11-13] MEDS ORDERED: LEVA500T PO (13:38)
[2016-11-13] MEDS ORDERED: PRED10 PO (13:38)
--- NOTE | 2016-11-13 13:38 | HHI.DCPOC ---
Discharge Care Plan Diagnosis: (1) Pneumonia (2) COPD (chronic obstructive pulmonary disease) (3) Ulcerative colitis (4) CAD (coronary artery disease) (5) Seizure disorder (6) HTN (hypertension) Goals to Promote Your Health * To prevent worsening of your condition and complications * To maintain your health at the optimal level Directions to Meet Your Goals Take your medications as prescribed Follow your dietary instruction Follow activity as directed Keep your appointments as scheduled Take your immunizations and boosters as scheduled If your symptoms worsen call your PCP, if no PCP go to Urgent Care Center or Emergency Room Smoking is Dangerous to Your Health. Avoid second hand smoke Call the 24-hour hour crisis hotline for domestic abuse at Salvador Hopkins MD Nov 13, 2016 13:38
--- NOTE | 2016-11-13 13:45 | HHI.FF ---
Face to Face Verification Diagnosis: (1) Pneumonia (2) COPD (chronic obstructive pulmonary disease) Physical Therapy Order: Evaluate and Treat, Improve ambulation Home Health Nursing Order: Medical education Signs/symptoms of disease process Oxygen administration education Medication education-adverse effect Nursing assessment with vital signs I have seen patient Janny Adan on 11/13/16. My clinical findings support the need for the requested home health care services because: Patient has SOB I certify that my clinical findings support that this patient is homebound because: Hx COPD- exertion dyspnea/weakness Salvador Hopkins MD Nov 13, 2016 13:45
[2016-11-14] VITALS: BP 139/63; PULSE 92; RESP 18; TEMP 97.9; O2SAT 98
[2016-11-14 04:00] VITALS: BP 125/59; PULSE 80; RESP 16; TEMP 97.6; O2SAT 97
[2016-11-14 08:00] VITALS: BP 147/65; PULSE 81; RESP 18; TEMP 98; O2SAT 98
[2016-11-14 08:17] VITALS: O2SAT 99
[2016-11-14] MEDS: RESP: ALBUTEROL 2.5 MG/IPRATROPIUM 0.5 MG NEB (SCH) NEB (08:17)
[2016-11-14] MEDS: SALMETEROL XINAFOATE 50 MCG DISKUS INH SCH (08:42)
[2016-11-14] MEDS: SODIUM CHLORIDE 0.9% FLUSH 5 ML FLUSH FLUSH SCH (08:42)
[2016-11-14] MEDS: LISINOPRIL 20 MG TAB PO SCH (08:43)
[2016-11-14] MEDS: carBAMazepine 200 MG TAB PO SCH (08:43)
[2016-11-14] MEDS: PANTOPRAZOLE SOD 20 MG DELAYED RELEASE TAB PO SCH (08:43)
[2016-11-14] MEDS: LEVOFLOXACIN 250 MG TAB PO SCH (08:43)
[2016-11-14] MEDS: guaiFENesin E.R. 600 MG TAB PO SCH (08:43)
[2016-11-14] MEDS: DOCUSATE SODIUM 100 MG CAP PO SCH (08:43)
[2016-11-14] MEDS: predniSONE 20 MG TAB PO SCH (08:43)
[2016-11-14] MEDS: ASPIRIN EC 81 MG TABEC PO SCH (08:48)
--- NOTE | 2016-12-14 10:38 | HHI.DS ---
Discharge Summary Admission Date Nov 06, 2016 at 13:27 Discharge Date: Nov 13, 2016 Admitting Diagnosis PNEUMONIA (1) Pneumonia Diagnosis: Principal (2) COPD (chronic obstructive pulmonary disease) Diagnosis: Secondary (3) Ulcerative colitis Diagnosis: Secondary (4) HTN (hypertension) Diagnosis: Secondary (5) CAD (coronary artery disease) Diagnosis: Secondary (6) Seizure disorder Diagnosis: Secondary Brief History Patient is a pleasant 81-year-old female presented to the [place] ER today with complaint of worsening cough and shortness of breath. Cough was productive of yellow sputum. Patient denies fever or chills. Patient denies recent travel. Patient complains of generalized weakness and poor appetite. Pt is chronically SOB d/t COPD, but she feels that her SOB has worsened from baseline in the last 1-2 weeks. Pt relates that she was around her great-granddaughter on [place] who had URI symptoms. Hospital Course - Pt presented with COPD exacerbation and PNA. - Ct scan of Chest reveals inflammatory changes right lower lobe. - She gradually improved with iv solumedrol/nebs and abx. - Sputum culture with heavy growth of normal respiratory rona -- hypoxic with ambulation but pt not interested in wearing o2 during day. -d/c orders placed for d/c home with hhc/pt.. She will continue nebs at home plus steroid taper and course levaquin. Pt Condition on Discharge: Stable Discharge Disposition: Disch w/ Home Health Serv Discharge Instructions DIET: Follow Instructions for: Heart Healthy Diet Activities you can perform: Regular-No Restrictions Follow up Referrals: PCP Follow-up - [address] [facility]/ with [facility]/ New Medications: Albuterol Neb (Albuterol Neb) 2.5 Mg/3 Ml Neb 2.5 MG NEB QID NEB Breathing Treatment #60 Ref 0 NEBULE Ipratropium Neb (Ipratropium Neb) 0.5 Mg/2.5 Ml Amp 0.5 MG NEB QID NEB Breathing Treatment Days 30 Ref 0 NEBULE Levofloxacin (Levaquin) 500 Mg Tab 500 MG PO DAILY Infection Days 6 Ref 0 TAB Prednisone (Prednisone) 10 Mg Tab 10 MG PO DIRECTED 20mg po bid x 2 days, 10mg po bid x 3 days, 10mg po daily x 5 days infection Days 10 Ref 0 TAB Guaifenesin ER 12 HR (Mucinex ER 12 HR) 600 Mg Nilesh 600 MG PO BID pneumonia Days 7 TAB Continued Medications: Albuterol 18 GM Inh (Ventolin Hfa 18 GM Inh) 90 Mcg/Act Aer 2 PUFF INH Q4H PRN SHORTNESS OF BREATH #1 Ref [address] (Aspirin Adult Low Strength) 81 Mg Tabdr 81 MG PO DAILY TAB Carbamazepine (Carbamazepine) 200 Mg Tab 300 MG PO BID #60 Ref 0 TAB Cholecalciferol (Vitamin D3) 2,000 Unit Tab 2000 UNITS PO BID Nutritional Supplement #1 Ref 0 BOTTLE Lisinopril (Lisinopril) 20 Mg Tab 20 MG PO BID #30 Ref 0 TAB Omeprazole (Omeprazole) 20 Mg Tab 20 MG PO DAILY #30 Ref 0 TAB Salmeterol Inh (Serevent Diskus Inh) 50 Mcg/Act Aero 1 PUFF INH BID #1 Ref 0 INHALER Sennosides (Senokot) 8.6 Mg Tab 17.2-25.8 MG PO BID PRN CONSTIPATION #30 Ref 0 TAB Sulfasalazine (Sulfasalazine) 500 Mg Tab 2000 MG PO DAILY #240 Ref 0 TAB Zoledronic Acid Inj (Reclast Inj) 5 Mg/100 Ml Inj 5 MG IV YEARLY #1 Ref 0 BAG Salvador Hopkins MD Dec 14, 2016 10:38
== END 2016-11-14 09:20 | disposition home health service (06) | DRG 190 ==
LOC: NEPA 11:01 → NEDA 13:27 → N04B 15:49
PROVIDERS: ADMIT Hospitalist; ATTEND Hospitalist
DX: J44.0 Chronic obstructive pulmonary disease with (acute) lower respiratory infection (principal); J18.9 Pneumonia, unspecified organism; K51.90 Ulcerative colitis, unspecified, without complications; J44.1 Chronic obstructive pulmonary disease with (acute) exacerbation; I73.9 Peripheral vascular disease, unspecified; I10 Essential (primary) hypertension; I25.10 Atherosclerotic heart disease of native coronary artery without angina pectoris; G47.00 Insomnia, unspecified; R09.02 Hypoxemia; G40.909 Epilepsy, unspecified, not intractable, without status epilepticus; M54.5 Low back pain; G89.29 Other chronic pain; Z85.038 Personal history of other malignant neoplasm of large intestine; Z88.0 Allergy status to penicillin; Z88.5 Allergy status to narcotic agent; Z87.891 Personal history of nicotine dependence; Z91.013 Allergy to seafood; Z95.5 Presence of coronary angioplasty implant and graft
CPT/HCPCS: 70450; 71010; 71020; 71250; 80048; 80156; 81001; 83605; 83735; 83880; 85025; 87040; 87070; 87205; 87449; 93005; 94150; 94620; 94640; 94664; 96365; 96367; 96375; J0456; J0696; J1940; J2920; J7050; J7512; J7608

== ENCOUNTER → 2017-06-20 | Day surgery (SDC) | payer MEDICARE ==
[~2017-06-20] MED LIST changes: +ACETAMINOPHEN/HYDROcodone 325 MG/5 MG TAB ONE; +ALBU0.08 NEB; -ALEN70 PO; +ASPI1TAB91 PO; -ASPI81 PO; -CALC625 PO; +CARB200T PO; -CARB300C2 PO; +CLINDAMYCIN PHOS 900 MG/6 ML VIAL ONE; -FOLI800T12 PO; +IPRA0.02 NEB; +LEVA500T PO; +LIDOCAINE 1%/EPINEPHrine 1:200,000 PF SOLN 30 ML VIAL ONE; +LISI-515 PO; +MIDAZOLAM HCL 2 MG/2 ML VIAL ONE; +MINERAL OIL 10 ML VIAL ONE; +MUCI600T PO; +NEBUMIS6; +OMEP20TA PO; +ONDANSETRON HCL 4 MG/2 ML VIAL IV PUSH ONE; +PRED10 PO; -PRIL20TA2 PO; -PRIN20TA2 PO; +PROPOFOL 200 MG/20 ML AMP IV ONE; -SALM50I; +SALM50I INH; +SENO8.6T5 PO; +SODIUM BICARBONATE 8.4% INJ 0 ML ONE; +SODIUM CHLORIDE 0.9% SOLN 100 ML BAG IV ONE; -SULF500 PO; +SULF500T3 PO; +VITA200012 PO; -ZITH250T PO; +ZOLE5P IV
--- NOTE | 2017-06-20 10:22 | MP ---
cc: HEIKE YOUNG M.D. DATE OF SURGERY June 20, 2017 PREOPERATIVE DIAGNOSIS Biopsy-proven melanoma in situ right shoulder. POSTOPERATIVE DIAGNOSIS Biopsy-proven melanoma in situ right shoulder. OPERATION Wide excision right shoulder melanoma in situ, local advancement closure. SURGEON Dr. Young ANESTHESIA General. INDICATIONS An 81-year-old white female with a lesion approximately 2 x 2 cm, irregular in outline with melanoma in situ on biopsy. The area was excised with 1-cm margin. The patient was explained the overall closing options. She does have relatively loose skin and an advancement closure may be possible. If the wound does not hold sutures because of her skin being very thin, then the option might be a secondary wound healing or possible future skin graft and she is prepared for both. PROCEDURE The patient was brought to the operating room, was given supine position. Anesthesia was started. Prep and drape was done. IV antibiotic had been given. A time-out was called and completed. The preoperative markings were reinforced and the area was injected with lidocaine 1% with epi. The specimen was excised, suture marked superior. Hemostasis was completed. A slight undermining was needed on both front and back side of the incision and it was possible to bring the skin over the open wound which is approximately 5 x 3 cm in size. The closure was completed with undermining both sides and deep internal inverting Vicryl and subcu running suture. Steri-Strips were applied. The patient remained stable. Intraoperative blood loss minimal. No complications. signed, not fully reviewed MD RADHA Brush/CHACE /9:53 AM /10:16 AM MELINDA
== END | disposition home or self-care (01) ==
LOC: ESDC 07:56
PROVIDERS: ATTEND Plastic Surgery
DX: D03.61 Melanoma in situ of right upper limb, including shoulder (principal)
CPT/HCPCS: 00400; 14021; 88305; J2250; J2405; J3010